=== PATIENT | male | born 1975 | race Caucasian/White ===

== ENCOUNTER 2022-11-16 14:47 | Outpatient (REF) | payer MEDICAID, SELFPAY ==
--- NOTE | 2022-11-16 14:55 | EMG_ITS ---
Chief complaint: Fall injury February 2022 resulting in lower back pain radiating to the legs. Numbness in his legs especially with walking. Patient is not diabetic. No history of past lumbar surgery. Recent back injection relieved numbness. Reason for referral: Evaluate for neuropathy versus radiculopathy Referred by: Sohan RUSH Procedure done: Bilateral lower extremity NCS/EMG Precautions and/or limitations: None The limb temperature was monitored continuously and remained between 32-36 degrees C during the performance of the NCS. Nerve Conduction Studies Anti Sensory Summary Table ?Stim Site NR Onset (ms) Norm Onset (ms) Peak (ms) Norm Peak (ms) O-P Amp (?V) Norm O-P Amp Site1 Site2 Delta-0 (ms) Dist (cm) Rio (m/s) Norm Rio (m/s) Left Sural Anti Sensory (Lat Mall) Calf ? 1.4 3.6 <4.0 7.4 >5.0 Calf Lat Mall 1.4 14.0 100 Right Sural Anti Sensory (Lat Mall) Calf ? 3.0 3.4 <4.0 5.8 >5.0 Calf Lat Mall 3.0 14.0 47 Motor Summary Table ?Stim Site NR Onset (ms) Norm Onset (ms) O-P Amp (mV) Norm O-P Amp iAmp (mV) Amp (1st) (%) Site1 Site2 Delta-0 (ms) Dist (cm) Rio (m/s) Norm Rio (m/s) Left Peroneal Motor (Ext Dig Brev) Ankle ? 3.5 <4.0 5.1 >2.5 6.9 100.0 Ankle Ext Dig Brev 3.5 0.0 B Fib ? 10.5 4.6 6.2 90.2 B Fib Ankle 7.0 31.0 44 >40 Poplt ? 11.2 5.0 6.7 98.0 Poplt B Fib 0.7 7.0 100 >40 Right Peroneal Motor (Ext Dig Brev) Ankle ? 3.6 <4.0 4.3 >2.5 5.6 100.0 Ankle Ext Dig Brev 3.6 0.0 B Fib ? 10.0 4.9 6.2 114.0 B Fib Ankle 6.4 32.0 50 >40 Poplt ? 11.1 4.8 6.2 111.6 Poplt B Fib 1.1 5.5 50 >40 Left Tibial Motor (Abd Arrieta Brev) Ankle ? 3.6 <5 5.0 >2.5 7.1 100.0 Ankle Abd Arrieta Brev 3.6 0.0 Knee ? 11.8 3.3 5.0 66.0 Knee Ankle 8.2 39.0 48 >40 Run #2 (Abd Arrieta Brev) Ankle ? 3.8 <5 5.2 >2.5 7.0 100.0 Ankle Abd Arrieta Brev 3.8 0.0 Knee ? 12.0 1.3 1.8 25.0 Knee Ankle 8.2 40.0 49 >40 H Reflex Studies ?NR H-Lat (ms) L-R H-Lat (ms) L-R Lat Norm Left Tibial (Gastroc) ? 12.80 0.86 <2.0 Right Tibial (Gastroc) ? 11.94 0.86 <2.0 EMG ?Side Muscle Nerve Root Ins Act Fibs Psw Amp Dur Poly Recrt Int Pat Comment Right AbdHallucis MedPlantar S1-2 Nml Nml Nml Nml Nml 0 Nml Complete Right AntTibialis Dp Br Peron L4-5 Nml Nml Nml Nml Nml 0 Nml Complete Right PostTibialis Tibial L5, S1 Nml Nml Nml Nml Nml 0 Nml Complete Right MedGastroc Tibial S1-2 Nml Nml Nml Nml Nml 0 Nml Complete Right VastusMed Femoral L2-4 Nml Nml Nml Nml Nml 0 Nml Complete Left AbdHallucis MedPlantar S1-2 Nml Nml Nml Nml Nml 0 Nml Complete Left AntTibialis Dp Br Peron L4-5 Nml Nml Nml Nml Nml 0 Nml Complete Left PostTibialis Tibial L5, S1 Nml Nml Nml Nml Nml 0 Nml Complete Left MedGastroc Tibial S1-2 Nml Nml Nml Nml Nml 0 Nml Complete Left VastusMed Femoral L2-4 Nml Nml Nml Nml Nml 0 Nml Complete Paraspinal EMG ?Side Muscle Nerve Root Ins Act Fibs Psw Comment Right Lumbar Upper Rami Nml Nml Nml Right Lumbar Mid Rami Nml Nml Nml Right Lumbar Lower Rami Nml Nml Nml Left Lumbar Upper Rami Nml Nml Nml Left Lumbar Mid Rami Nml Nml Nml Left Lumbar Lower Rami Nml Nml Nml FINDINGS: All motor and sensory nerves tested showed normal latencies, amplitudes and conduction velocities. H reflexes were normal and symmetric. Concentric needle EMG was performed in selected muscles of the bilateral lower extremity and lumbar paraspinals. Study did not reveal signs of electric abnormalities as shown in the table below. IMPRESSION: 1. This is a normal study. 2. There is no electrodiagnostic evidence for peroneal neuropathy, tibial neuropathy, lumbosacral plexopathy, lumbar radiculopathy, or peripheral neuropathy. CLINICAL COMMENT: Symptoms suggestive of lumbar radiculitis or stenosis although no active denervation seen on needle EMG today. Thank you for your kind referral. Apoorva Nicole MD, ANTHONY Board Certified, [place] Board [employer] and Rehabilitation (ABPMR) Board Certified, [place] Board of Electrodiagnostic Medicine (ABEM) CODIN 97114 x 2 MTDD
== END 2022-11-16 14:48 | disposition home or self-care (01) ==
LOC: HO.NEURO 14:47
PROVIDERS: PCP Internal Medicine; Visit Provider Physical Medicine & Rehabilitation
DX: G62.9 Polyneuropathy, unspecified (principal); M54.16 Radiculopathy, lumbar region; M47.896 Other spondylosis, lumbar region
CPT/HCPCS: 95886; 95910

== ENCOUNTER → 2022-11-16 14:55 | Outpatient (BNV) | payer MEDICAID, SELFPAY | PROVIDERS: PCP Internal Medicine; Visit Provider Physical Medicine & Rehabilitation | DX: M54.50 Low back pain, unspecified (principal); M79.604 Pain in right leg; M79.605 Pain in left leg | CPT/HCPCS: 95886; 95910 ==

== ENCOUNTER 2024-01-05 09:23 | Outpatient (REF) | payer OTHER, SELFPAY | END 2024-01-05 09:24 | disposition home or self-care (01) | LOC: HO.HOSX 09:23 | PROVIDERS: PCP Internal Medicine; Referring Provider Physician Assistant; Visit Provider Physician Assistant | DX: M43.16 Spondylolisthesis, lumbar region (principal) | CPT/HCPCS: 72110 ==

== ENCOUNTER 2024-01-05 09:23 | Outpatient (AMB) | payer OTHER, MEDICAID, SELFPAY ==
--- NOTE | 2024-01-05 09:28 | A.SPINEOV_ITS ---
Intake Visit Reasons: spinal stenosis/low back pain Intake Note: Mr. Mckeon is here today c/o Low back pain and numbness on feet. [place] Required: No Allergies Gabapentin Allergy (Mild, Uncoded 01/05/24 09:30) Itching Assessment & Plan Assessment & Plan (1) Spondylolisthesis, lumbar region: Code(s): M43.16 - Spondylolisthesis, lumbar region Category: Medical Plan Dear Sohan, Thank you for referring Mr Mckeon to our office today. He is a very nice 48-year-old gentleman who presents to the office today for evaluation of a chronic low back pain that he has had now for a number of years. He feels it particularly worse when he is standing and walking. At this point he can only walk for very short distance. It as he is walking his back will hurt, his feet will go numb in his but will feel numb. If he sits down it will go away. Sleeping at night as okay. If he bends forward it seems to help the pain and discomfort as well. He underwent 2 different cortisone injections with Dr. Trejo that only gave him very modest relief. Tried ibuprofen and Tylenol but that did not help much at all. He takes Percocet that gives him a little bit of relief but other than that nothing is working. He had an MRI done at the [facility] showing a spondylolisthesis L4-5 with significant facet arthropathy with central canal stenosis. PMH: Otherwise healthy gentleman, he had a episode of colitis earlier this year which resolved and he is on treatment with folic acid, vitamin B6 and pantoprazole. History of hand surgery, knee surgery and clavicle repair. Denies any problem with his heart, lungs, strokes, kidney, liver, bleeding disorders or cancer Social hx: He does not smoke, drink use any recreational drugs Medications: Pantoprazole, multivitamin, folic acid, vitamin B6 and Percocet Allergies: Gabapentin Physical exam: Awake alert oriented no acute distress, he walks with a flexed posture, strength and reflexes are normal Imaging review: Lumbar MRI done at the [facility] shows a grade 1 spondylolisthesis with significant facet arthropathy, the right-sided facet joint seems to be medially rotated, there maybe a small cyst on it. This altogether as causing moderate to severe central canal stenosis. Impression: 48-year-old gentleman presents to the office today for evaluation of chronic low back pain which is getting worse over time associated with numbness of his feet and numbness of his buttocks. If he sits down it will go away. It has gotten to the point now where he can walk for only very short distances before he has to sit down. It can be a struggle just to get through his day. He has tried conservative management in the form of anti- inflammatories, Tylenol, cortisone injections and activity modifications. He has a grade 1 spondylolisthesis on his MRI with moderate to severe central canal stenosis. He has significant facet arthropathy. I sent him for flexion- extension x-rays which shows signs of significant anterior translation in the standing position compared to his MRI done in the supine position where there is just a subtle spondylolisthesis. His clinical situation suggests instability also. Dr. Cochran met with the patient. We discussed the typical treatment for this which would be correction of the spondylolisthesis with fusion, specifically oblique lumbar interbody fusion. All pertinent risks and benefits were discussed. Success rates quoted at 70-90% for back pain. Although he has not yet participated in physical therapy, I do not see any reason to put him through this as there is no good literature that we are aware of that states that physical therapy will correct a spondylolisthesis that has dynamic instability on standing x-rays. I did warn him that sometimes insurance companies will still however put him through this before surgery. Pt was given risk and benefits of surgery including but not limited to infection, hematoma , nerve injury,durotomy, weakness,bowel/bladder injury, persistent pain, adjacent segment disease as well as the option to continue with conservative treatment and patient wishes to proceed with surgery. Pt is aware they should stop their motrin, aspirin 7 days prior to surgery. All questions were answered to the best of our ability. If there is anything about this patients medical history that we have overlooked or concerns you have about us proceeding with surgery we would appreciate any input you can offer. Thank you for allowing us to care for your patient. The total time spent with this visit with this patient was 45 minutes reviewing history, physical exam, lumbar imaging review, and implementation of treatment plan or further diagnostic testing Jorge Luis Cochran MD,PhD [facility] Orders: Orders XR lumbar spine 4V min Today M43.16 - Spondylolisthesis, lumbar region Coding Level of Care Code New Pt Level 4 (69307) Diagnoses Spondylolisthesis, lumbar region M43.16
== END 2024-01-05 10:04 | disposition home or self-care (01) ==
PROVIDERS: PCP Internal Medicine; Referring Provider Physician Assistant; Visit Provider Physician Assistant
DX: M43.16 Spondylolisthesis, lumbar region (principal)
CPT/HCPCS: 99204

== ENCOUNTER → 2024-01-23 14:08 | Outpatient (BNV) | payer OTHER, SELFPAY | PROVIDERS: Admitting Provider Neurological Surgery; PCP Internal Medicine; Visit Provider Internal Medicine | DX: R94.31 Abnormal electrocardiogram [ECG] [EKG] (principal) | CPT/HCPCS: 93010 ==

== ENCOUNTER 2024-02-19 07:19 | Observation (INO) | payer OTHER, SELFPAY ==
--- NOTE | 2024-01-23 | ECG_ITS ---
Test Reason : preop Blood Pressure : / mmHG Vent. Rate : 087 BPM Atrial Rate : 087 BPM P-R Int : 154 ms QRS Dur : 076 ms QT Int : 338 ms P-R-T Axes : 055 013 042 degrees QTc Int : 406 ms Normal sinus rhythm Possible Left atrial enlargement Nonspecific ST abnormality Abnormal ECG No previous ECGs available Referred By: Lor Sanchez Electronically Signed By:MIMI WINTER
[2024-01-23 13:10] VITALS: BP 142/102; PULSE 96; RESP 16; O2SAT 99; BMI 25.8
--- NOTE | 2024-01-23 13:48 | HO.ANESPROP2 ---
Documented by User: Lor Sanchez NP 02/15/24 10:32 HPI - Anesthesia Eval Consult details Narrative: 48yo M for L4-5 Oblique Lumbar Interbody Fusion, 02/19/24 No recent illness No CP/SOB with work as maintence at [employer] ETOH: 11/2023 drinking 1 pint daily, now down to couple nips every couple of days . Previous + withdrawal symptoms 2021. Discussed slow decrease preop Awareness under anesthesia during L hand surgery - ? TIVA/block, does not remember ETT GERD: controlled with ppi PMFSH Active Problems Active Problems: All Active Problems Spondylolisthesis, lumbar region (Acute) Past Medical History Medical History History of suicidal ideation Insomnia GERD (gastroesophageal reflux disease) History of alcohol abuse Hx of jaundice (~2021) Hx of infection Pancolitis Hx of esophagitis Depression Anxiety Awareness under anesthesia History of fracture of clavicle (~08/2022) Surgical History Surgical History History of esophagogastroduodenoscopy (EGD) (~10/2023) Hx of colonoscopy (~10/2023) Hx of hand surgery (~2005) Hx of arthroscopy of right knee (~2007) Social History Social History (Updated 01/23/24 @ 13:58 by Venus Godfrey RN) Household Members: None Housing: Apartment Are you a primary wound care coordinator to a significant other at home: No Do you presently have visiting nurse or other home services: No Comment: uses a walking stick at times Patient Tobacco Use Status: Former Tobacco user Tobacco use type: Cigarette Smoked in Last 30 Days: No Use of substances other than those prescribed or required for medical reasons: No Have you been hit, kicked, punched, or otherwise hurt by someone within the past year? If so, by whom?: No Spiritual Healthcare Practices: no Orthodox Healthcare Practices: no Cultural Healthcare Practices: no Are you DNR?: No Advance Directives: No Advance Directives Information Provided: Yes Advance Directives on File: No Recently lost weight without trying: Yes How much weight loss: 14-23 pounds Eating poorly because of decreased appetite: No Nutrition screen score: 4 Nutrition Risks: No Nutritional Risk Poor oral hygiene: No Meds Allergies Allergy/AdvReac Type Severity Reaction Status Date / Time Gabapentin Allergy Severe Itching Uncoded 01/23/24 13:33 all over Home Medications ?Medication ?Instructions ?Recorded ?Confirmed ?Last Taken ?Type folic acid 1 mg tablet 1 mg PO DAILY 01/22/24 01/22/24 Unknown History hydroxyzine pamoate 50 mg capsule 50 mg PO Q4H PRN anxiety 01/22/24 01/22/24 Unknown History multivitamin (One Daily 1 tab PO DAILY 01/22/24 01/22/24 Unknown History Multivitamin tablet) oxycodone-acetaminophen 5 mg-325 1 tab PO QID PRN Pain 01/22/24 01/22/24 Unknown History mg tablet pantoprazole 40 mg tablet,delayed 40 mg PO DAILY 01/22/24 02/19/24 Unknown History release pyridoxine (vitamin B6) 100 mg 100 mg PO DAILY 01/22/24 01/22/24 Unknown History tablet quetiapine 25 mg tablet 25 mg PO BID PRN Anxiety 01/22/24 01/23/24 Unknown History sucralfate 1 gram tablet 1 g PO BID 01/22/24 01/22/24 Unknown History quetiapine 100 mg tablet 100 mg PO BEDTIME 01/23/24 01/23/24 Unknown History Exam Height,Weight and Vital Signs: Height 5 ft 8 in Weight 77.111 kg Last Vital Signs Pulse 96 01/23/24 13:10 Resp 16 01/23/24 13:10 BP 142/102 H 01/23/24 13:10 Pulse Ox 99 01/23/24 13:10 O2 Del Method Room Air 01/23/24 13:10 Pertinent Lab Results Pertinent Lab Results: Lab Results 02/08/24 02/08/24 Range/Units 16:06 16:07 WBC 5.5 (4.8-10.8) X10*3/uL RBC 3.46 L (4.60-5.80) X10*6/uL Hgb 11.4 L (14.0-18.0) g/dl Hct 32.5 L (42.0-52.0) % MCV 93.9 (80.0-98.0) fL MCH 32.9 (27.0-33.0) pg MCHC 35.1 (31.0-36.0) g/dl RDW 13.0 (11.0-16.0) % Plt Count 279 (160-400) X10*3/uL MPV 8.8 L (9.4-12.4) fL Absolute Nucleated RBC 0.000 (0.0-0.012) X10*3/uL Nucleated RBC % (auto) 0.0 (0.0-0.2) /100WBC PT 10.7 L (10.9-12.4) SEC INR 0.9 (0.9-1.1) Sodium 142 (135-145) mmol/L Potassium 4.4 (3.3-5.1) mmol/L Chloride 108 (96-108) mmol/L Carbon Dioxide 26 (22-29) mmol/L Anion Gap 12 (12-20) BUN 16 (9-16) mg/dL Creatinine 0.83 (0.5-1.4) mg/dL Estim Creat Clear Calc 104.1 Estimated GFR > 60 Fasting Glucose 96 (60-99) mg/dL Calcium 9.6 (8.4-10.2) mg/dL Total Bilirubin 0.3 (0.0-1.0) mg/dL AST 26 (5-37) U/L ALT 22 (0-40) U/L Alkaline Phosphatase 43 (39-117) U/L Total Protein 7.5 (6.5-8.0) g/dL Albumin 4.6 (3.5-5.0) g/dL Blood Type A Positive Antibody Screen NEGATIVE Narrative Narrative: EKG 12/2023 Vent. Rate : 087 BPM Atrial Rate : 087 BPM P-R Int : 154 ms QRS Dur : 076 ms QT Int : 338 ms P-R-T Axes : 055 013 042 degrees QTc Int : 406 ms Normal sinus rhythm Possible Left atrial enlargement Nonspecific ST abnormality Abnormal ECG No previous ECGs available Airway TM Dist: >3cm Neck ROM: Full Loose/Missing/Broken Teeth: Yes (capped ~#9,) Heart: RRR Lungs: CTAB Assessment and Plan Assessment Anesthesia Assessment: Anesthesia Plan Discussed and PAT Visit Documented by User: Aileen Echavarria MD 02/19/24 07:57 PMFSH Past Medical History Medical History History of suicidal ideation Insomnia GERD (gastroesophageal reflux disease) History of alcohol abuse Hx of jaundice (~2021) Hx of infection Pancolitis Hx of esophagitis Depression Anxiety Awareness under anesthesia History of fracture of clavicle (~08/2022) Family History Family history of problems with anesthesia: No Surgical History Surgical History History of esophagogastroduodenoscopy (EGD) (~10/2023) Hx of colonoscopy (~10/2023) Hx of hand surgery (~2005) Hx of arthroscopy of right knee (~2007) History of Problems with Anesthesia: No Social History Social History (Updated 01/23/24 @ 13:58 by Venus Godfrey RN) Household Members: None Housing: Apartment Are you a primary wound care coordinator to a significant other at home: No Do you presently have visiting nurse or other home services: No Comment: uses a walking stick at times Patient Tobacco Use Status: Former Tobacco user Tobacco use type: Cigarette Smoked in Last 30 Days: No Use of substances other than those prescribed or required for medical reasons: No Have you been hit, kicked, punched, or otherwise hurt by someone within the past year? If so, by whom?: No Spiritual Healthcare Practices: no Orthodox Healthcare Practices: no Cultural Healthcare Practices: no Are you DNR?: No Advance Directives: No Advance Directives Information Provided: Yes Advance Directives on File: No Recently lost weight without trying: Yes How much weight loss: 14-23 pounds Eating poorly because of decreased appetite: No Nutrition screen score: 4 Nutrition Risks: No Nutritional Risk Poor oral hygiene: No Meds Allergies Allergy/AdvReac Type Severity Reaction Status Date / Time Gabapentin Allergy Severe Itching Uncoded 01/23/24 13:33 all over Home Medications ?Medication ?Instructions ?Recorded ?Confirmed ?Last Taken ?Type folic acid 1 mg tablet 1 mg PO DAILY 01/22/24 01/22/24 Unknown History hydroxyzine pamoate 50 mg capsule 50 mg PO Q4H PRN anxiety 01/22/24 01/22/24 Unknown History multivitamin (One Daily 1 tab PO DAILY 01/22/24 01/22/24 Unknown History Multivitamin tablet) oxycodone-acetaminophen 5 mg-325 1 tab PO QID PRN Pain 01/22/24 01/22/24 Unknown History mg tablet pantoprazole 40 mg tablet,delayed 40 mg PO DAILY 01/22/24 02/19/24 Unknown History release pyridoxine (vitamin B6) 100 mg 100 mg PO DAILY 01/22/24 01/22/24 Unknown History tablet quetiapine 25 mg tablet 25 mg PO BID PRN Anxiety 01/22/24 01/23/24 Unknown History sucralfate 1 gram tablet 1 g PO BID 01/22/24 01/22/24 Unknown History quetiapine 100 mg tablet 100 mg PO BEDTIME 01/23/24 01/23/24 Unknown History Exam Airway Mallampati Class: II (cap front) Assessment and Plan Final Anesthetic Review Family History of Problems with Anesthesia: No History of Problems with Anesthesia: No NPO: Yes ASA Class: II Final Preanesthetic Review: No Changes in Pt Med Stat, Meds/Allgs Chart Reviewed and Consent Obtained/Reviewed Patient Risk: Intermediate Procedure Risk: Intermediate Anesthetic Plan Anesthetic Plan: GA Disposition: Standard PACU
[2024-02-08 16:39] LABS: Hematocrit 32.5 % (42.0-52.0); Hemoglobin 11.4 g/dl (14.0-18.0); Mean Corpuscular HGB Conc 35.1 g/dl (31.0-36.0); Mean Corpuscular Hemoglobin 32.9 pg (27.0-33.0); Mean Corpuscular Volume 93.9 fL (80.0-98.0); Mean Platelet Volume 8.8 fL (9.4-12.4); Platelet Count 279 X10*3/uL (160-400); Red Blood Count 3.46 X10*6/uL (4.60-5.80); White Blood Count 5.5 X10*3/uL (4.8-10.8)
[2024-02-08 16:56] LABS: INTERNATIONAL NORM RATIO 0.9 (0.9-1.1); Prothrombin Time 10.7 SEC (10.9-12.4)
[2024-02-08 17:10] LABS: Alanine Aminotransferase 22 U/L (0-40); Albumin Level 4.6 g/dL (3.5-5.0); Alkaline Phosphatase 43 U/L (39-117); Anion Gap 12 (12-20); Aspartate Amino Transferase 26 U/L (5-37); Bilirubin Total 0.3 mg/dL (0.0-1.0); Blood Urea Nitrogen 16 mg/dL (9-16); Calcium 9.6 mg/dL (8.4-10.2); Carbon Dioxide 26 mmol/L (22-29); Chloride 108 mmol/L (96-108); Creatinine Clr Calc Pharmacy 104.1; Estimated Glomerular Filt Rate > 60; Glucose Fasting 96 mg/dL (60-99); Potassium 4.4 mmol/L (3.3-5.1); Sodium 142 mmol/L (135-145); Total Protein 7.5 g/dL (6.5-8.0)
[2024-02-19] VITALS (14 sets, daily range): BP systolic 136–173; BP diastolic 92–116; PULSE 75–100; RESP 14–18; TEMP 36.7–37.7; O2SAT 94–100; BMI 25.8; BMI 25.3
--- NOTE | ~2024-02-19 | FL_ITS ---
EXAMINATION: FL UP TO 1 HOUR CLINICAL INFORMATION: L4-5 OLIF COMPARISON: Number spine radiograph 01/05/2024 TECHNIQUE: Fluoroscopy and spot films provided during L4-5 OLIF. FINDINGS: 4 AP and lateral included spot films demonstrate placement of bipedicular L4-5 posterior spinal fusion with intervertebral disc spacer, with resolution of previously seen grade 1 anterolisthesis of L4 on L5. FLUOROSCOPY TIME: 1:43 MIN DOSE AREA PRODUCT: 16.187 Gycm2 36.718 mGy FL/FL guidance in OR IMPRESSION: Intraprocedural spot films and fluoroscopy were provided. Please refer to procedure note for full details. Electronically signed by: Jenna Douglass DO 02/19/2024 08:25 PM BOB
--- NOTE | 2024-02-19 07:49 | MHC.SHP ---
Pre-Procedural Eval Section A - 24 Hr Update-Section A only Date of Service: 02/19/24 The patient is an INPATIENT: Yes Section B - Complete if H&P > 30 days Chief Complaint: S/P 14-5 olif Allergies: Allergies Allergy/AdvReac Type Severity Reaction Status Date / Time Gabapentin Allergy Severe Itching Uncoded 01/23/24 13:33 all over Review of Systems Sugical H&P ROS: Negative: Constitution, Cardiovascular, Respiratory, Neurological, Psychiatric, Hem-Onc, Allergic/Immunologic, Gastrointestinal, Genitourinary, Musculoskeletal, Integumentary, Endocrine and Eyes/Ears/Nose/Throat Exam Surgical H&P Exam: Normal: HEENT, Normal: Heart, Normal: Lungs, Normal: Extremities, Normal: Abdomen, Normal: Skin and Normal: Neurological (Awake, alert) Plan I have reviewed the history and physical and performed a pertinent physical examination on my patient. No changes have occurred unless specified. L4-5 oblique lumbar interbody fusion Time Spent With Patient Time: Total time managing care of this patient today __5__ minutes.
[2024-02-19] MEDS: methocarbamoL 750 MG TABLET PO (07:50)
[2024-02-19] MEDS: Lactated Ringers 1,000 ML 100 ML IVCONT (07:50)
--- NOTE | 2024-02-19 10:48 | P.OP_ITS ---
Operative Note Operative Note Date of Service: 02/19/24 Narrative: Preop Diagnosis: 1.) Lumbar spondylolisthesis 2.) Neurogenic claudication Procedure: 1) L4-5 discectomy, arthrodesis and implantation cage through an anterolateral, retroperitoneal approach 2) L4-5 posterior instrumented fusion 3) allograft 4) injection of 10 cc of Exparel at the bilateral L4 transverse process for a muscular erector spinae block and additional Exparel in paravertebral tissue for postop management Consent Informed Consent was obtained for this operation. I have explained the nature, purpose and benefits of the operation. I have discussed the risks and benefit of the operation including possible complications or adverse events with patient/family. Alternative(s) were discussed with the patient with their relative benefits and risks as well as the consequences of not accepting the operation were included in obtaining consent. Surgeon: MIGUEL A MURPHY MD, PHD Procedure Assisted By: janet De Luna Description of Procedure This patient is suffering from back pain and neurogenic claudication due to an L4-5 spondylolisthesis and associated lumbar spinal stenosis. The patient was offered an oblique lumbar interbody fusion L4-5. The procedure complications were explained. The patient was consented. The patient was brought to the operating room and endotracheally intubated. The patient was turned in a lateral position with the left side up. Prep and drape was done followed by timeout. A small incision was made in the left lower abdominal quadrant. The muscle fascia was opened after which the 3 muscle layer was split to enter the retroperitoneal space. Dilators were docked in the anterior one third of the L4-5 disc space followed by a retractor. The retractor was opened. The L4-5 disc space was exposed. An annulotomy was done after which an elevator Baptiste was used to release the disc material from its endplates and to perforate the contralateral side. A partial discectomy was done. An 8, 10 and 12 height trial implant was inserted. The discectomy was completed. The endplates were prepared. An 12 x 50 mm with 6 degree lordosis 4 web cage filled with allograft was inserted into the disc space under fluoroscopic guidance. This resulted in reduction of the spondyl olisthesis. The retractor was removed. Hemostasis was done. The incision was closed in 2 layers. Steri-Strips used to approximate incision. An OpSite with Tegaderm was used to cover the incision. This marked first part of the procedure. The patient was turned prone on the Sam spine table. 2C arms were installed for fluoroscopy. Prep and drape was done followed by a second timeout.Iinjection of 10 cc of Exparel at the bilateral L4 transverse process for a muscular erector spinae block2 paramedian incisions were made lateral from the L4 and L5 pedicles. The muscle fascia was opened after which the muscle layer was split bluntly to expose the posterolateral gutter. The following steps were taken. A pediguard tap was used to create a transpedicular trajectory into the vertebral body. A K wire was placed. A specially designed instrument was advanced over the K wire to decorticate the posterolateral gutter in preparation for the posterolateral fusion. A pedicle screw was advanced over the K wire and the K wire was removed. The steps were done for the bilateral L4 and L5 pedicles. A total of 4 screws were placed with a diameter of 6.5 x 45 mm. Pedicle screws were connected with 45 mm michaela bilaterally and locked down with locking caps. The extension towers were removed. The posterolateral gutter was filled with allograft to complete the posterolateral L4-5 fusion Hemostasis was done and the incision was closed in 2 layers. Steri-Strips were used to approximate the incision. An OpSite were taken and was used to cover the incision. All sponge and needle counts were correct. Patient was extubated and transferred in stable is to recovery room. Anesthesia: General Estimated Blood Loss (ml): 30 mL Duration of Surgery: 90 minutes Complications: None Postoperative Plan: Admit to inpatient for observation
[2024-02-19] MEDS: fentaNYL citrate/PF 100 MCG/2 ML VIAL 50 MCG IVPUSH ×4 (11:25→11:40)
[2024-02-19] MEDS: oxyCODONE HCl Immed Release 5 MG TABLET PO ×2 (12:10→16:06)
--- NOTE | 2024-02-19 13:12 | PC.NURSE ---
Pt arrived to unit from PACU A&Ox4 and cooperative with care. Neuro assessment intact. Surgical dressing in place to lower back scant amount of shadow staining noted. Pt able to answer admission questions appropriately. Pt endorsing 7/10 lower back pain, last dose of oxy given at 12:10. All safety measures in place.
[2024-02-19] MEDS: 0.9 % Sodium Chloride 1,000 ML 75 ML IVCONT (13:20)
[2024-02-19] MEDS: HYDROmorphone HCl 1 MG/ML SYRINGE IVPUSH ×2 (13:35→23:35)
[2024-02-19] MEDS: Acetaminophen 1,000 MG/100 ML PIGGYBACK 400 MG IV ×2 (15:17→20:49)
[2024-02-19] MEDS: ceFAZolin Sodium/Dextrose,Iso 2 GM/50 ML PIGGYBACK IV ×2 (15:17→20:50)
--- NOTE | 2024-02-19 15:22 | PC.NURSE ---
MD Cochran made aware pt states he drinks daily, amounts very but sometimes up to 4-6 mixed drinks with vodka a day . Pt states he has experienced withdrawl from alcohol in the past and has had seizures r/t drinking. Mild tremors were noted upon assessment MD made aware. Pt states he is able to tell when he is withdrawaling from alcohol and doesn't believe he is at this time. Jorge Luis Corcoran ordered Librium TID PRN, pt is aware and is declining PRN med at this time.
[2024-02-19] MEDS: Ketorolac Tromethamine 15 MG/ML VIAL IVPUSH ×2 (17:19→23:30)
--- NOTE | 2024-02-19 17:56 | PHA.MEDREC ---
Pharmacy Consult ? Medication Reconciliation Pharmacy has reviewed the medication reconciliation completed by nursing. Called [facility] to confirm medications.
[2024-02-19] MEDS: Pyridoxine HCl (Vitamin B6) 50 MG TABLET 100 MG PO (18:41)
[2024-02-19] MEDS: Omeprazole 20 MG CAPSULE.DR PO (18:41)
[2024-02-19] MEDS: Docusate Sodium 100 MG CAPSULE PO (20:46)
[2024-02-19] MEDS: QUEtiapine Fumarate 100 MG TABLET PO (20:46)
[2024-02-19] MEDS: Sucralfate 1 GM TABLET PO (20:46)
[2024-02-19] MEDS: oxyCODONE HCl Immed Release 5 MG TABLET 10 MG PO (20:47)
[2024-02-19] MEDS: hydrOXYzine HCL 50 MG TABLET PO (23:34)
[2024-02-20] MEDS: oxyCODONE HCl Immed Release 5 MG TABLET 10 MG PO ×4 (01:02→12:19)
[2024-02-20] MEDS: methocarbamoL 750 MG TABLET PO (01:03)
[2024-02-20] MEDS: 0.9 % Sodium Chloride 1,000 ML 75 ML IVCONT (03:10)
[2024-02-20 03:17] VITALS: BP 109/65; PULSE 67; RESP 18; TEMP 36.6; O2SAT 97
[2024-02-20] MEDS: Acetaminophen 1,000 MG/100 ML PIGGYBACK 400 MG IV ×2 (03:28→08:36)
[2024-02-20] MEDS: ceFAZolin Sodium/Dextrose,Iso 2 GM/50 ML PIGGYBACK IV (03:44)
[2024-02-20] MEDS: HYDROmorphone HCl 1 MG/ML SYRINGE IVPUSH (04:00)
[2024-02-20] MEDS: Ketorolac Tromethamine 15 MG/ML VIAL IVPUSH ×2 (05:17→10:42)
[2024-02-20] MEDS: Omeprazole 20 MG CAPSULE.DR PO (05:17)
--- NOTE | 2024-02-20 07:32 | HO.NEUROPN_ITS ---
Neurosurgery Operative Note Date of Service: 02/20/24 Narrative: Postoperative day 1 L4-5 oblique lumbar interbody fusion Patient reports he was up in the hallways walking around last night. He is sore but when taking the medication seems to do okay. He is voiding okay and tolerating a diet. Afebrile, vital signs are stable Physical exam: Patient is awake alert oriented no acute distress, lying in a hospital bed, appears comfortable, strength is normal. Abdomen is soft nondiste nded nontender, left lower quadrant incision clean and dry, back dressing clean and dry. Impression: Postop day 1. L4-5 oblique lumbar interbody fusion, clinically doing well, has already been up walking the hallways last night. He is going to get up and work with PT this morning do some stairs but we anticipate discharge home as he has met all criteria. Patient has had no alcohol withdrawal symptoms and otherwise doing okay from that standpoint as well. Patient seen at bedside with Dr. Cochran.
--- NOTE | 2024-02-20 07:34 | PM.DS ---
DS: Providers Provider Date of Service: 02/19/24 Date of admission: 02/19/24 07:19 Date of discharge: 02/20/24 Primary care physician: Jose Briones MD Admitting clinician: Rizwan Cochran DS: Diagnosis Discharge Diagnosis (1) Spondylolisthesis, lumbar region: Status: Acute DS: Summary Time Attestation Discharge Coordination Time (in mins): 5 Quality: Safe Use of Opioids Does Pt have an Active Cancer Diagnosis on the Problem List?: No Quality: Stroke Does the patient have a stroke diagnosis?: No Physical Exam Vital Signs: Vital Signs: Last Vital Signs Temp 97.8 F 02/20/24 03:17 Pulse 67 02/20/24 03:17 Resp 18 02/20/24 03:17 BP 109/65 02/20/24 03:17 Pulse Ox 97 02/20/24 03:17 O2 Del Method Room Air 02/20/24 03:17 BMI result Body Mass Index 25.3 Discharge Plan Discharge Patient Disposition: Home, Self-Care Referrals: Jose Briones MD [Primary Care Provider] - 1 Week Discharge Medications: New docusate sodium [Colace] 100 mg capsule 100 mg PO BID Qty: 20 0RF oxycodone 5 mg tablet See Rx Instructions .ROUTE .COMPLEX PRN (Reason: pain) Qty: 40 0RF Rx Instructions: 1-2 tabs po q4 hours prn pain; Partial Fill upon patient request. methocarbamol 500 mg tablet 500 mg PO QID PRN (Reason: spasm) Qty: 30 0RF ibuprofen 800 mg tablet 800 mg PO TID PRN (Reason: pain) Qty: 30 0RF Continued multivitamin [One Daily Multivitamin] Tablet 1 tab PO DAILY quetiapine 25 mg tablet 25 mg PO BID PRN (Reason: Anxiety) sucralfate 1 gram tablet 1 g PO BIDAC hydroxyzine pamoate 50 mg capsule 50 mg PO Q4H PRN (Reason: anxiety) pantoprazole 40 mg tablet,delayed release (DR/EC) 40 mg PO DAILY@0630 folic acid 1 mg tablet 1 mg PO DAILY pyridoxine (vitamin B6) 100 mg tablet 100 mg PO DAILY quetiapine 100 mg tablet 100 mg PO BEDTIME Discontinued oxycodone-acetaminophen 5-325 mg tablet 1 tab PO QID PRN (Reason: Pain) Discharge Orders: Discharge Order (Routine); Ordered 02/20/24 Ordered By: Jorge Luis Corcoran Diet: Advance to usual diet Activity on Discharge: As tolerated Stand Alone Forms: Patient Portal Discharge page Print Language: Sinhala Activity Restrictions/Additional Instructions: After your spinal surgery we ask you to observe the following restrictions/guidelines: Activity: It is normal to feel some discomfort as you increase your activity, but that will improve with time. We ask you avoid heavy lifting or acitivities that cause pain. As a general rule, 8lbs is a safe limit for lifting right after surgery. Walk as much as you feel comfortable but not to exhaustion. You will feel extra tired the first few days after surgery. Stay well hydrated. It is OK to walk up and down stairs You may return to driving when you are off narcotics (such as vicodin, oxycodone, dilaudid, etc), and you are back to normal functional capacity. If you have any concerns please check with office before driving. Return to work is specific to each patient and each surgery, so please speak with your doctor/PA at first follow up. Please bring paperwork such as FMLA at that time if you need it filled out. Medications: For optimum pain control, it is best to start with a combination of 500 mg of Tylenol every 4 hours with 600 mg of Motrin every 8 hours, and use narcotics as needed in between for breakthrough pain. We will give you a short supply of narcotics after surgery (usually one weeks worth). If you need more please call the office but do not use more than prescribed. You will need to give our office 48 hours notice if you need narcotics refilled and we do not fill narcotics on weekends or evenings. If you are on a narcotic, it is a good idea to take a stool softener such as colace or senna to avoid constipation If you take blood thinner such as aspirin, Plavix, Coumadin, Effient, Eliquis etc for conditions such as Afib, DVT, Pulmonary embolus, coronary disease, stents etc please speak with your surgeon about specific details as to when you can resume these medications. You can resume NSAIDs on post op day 1 (eg: Motrin, Naproxen, etc). Follow up: Please call the office, , after surgery to arrange a 3 week follow up for wound check. Wound Care: You may remove your dressing on the first day after surgery. ?You may ?leave open to air. Please do not remove the steri strips underneath. they will fall off on their own in one week. IT IS NORMAL FOR THE WOUND TO OOZE OR BE BLOODY FOR A FEW DAYS AFTER SURGERY. ?IF THIS HAPPENS JUST PLACE NEW DRESSING OVER IT TO AVOID STAINING CLOTHES. You may shower on post op day # 1 We ask that you do not let the water soak the wound. If it does get wet, just towel dry lightly. Please do not scrub your incision or place any type of chemical/ointment on the wound. No tub baths, pools or jacuzzis for one month. If you have any leaking or redness from your wound, or fevers, please call office Care Plan Goals: Discharge home Health Concerns: None Plan of Treatment: Discharge home Assessment: Stable
[2024-02-20] MEDS: Sucralfate 1 GM TABLET PO (07:49)
[2024-02-20] MEDS: Folic Acid 1 MG TABLET PO (07:49)
[2024-02-20] MEDS: Pyridoxine HCl (Vitamin B6) 50 MG TABLET 100 MG PO (07:49)
[2024-02-20] MEDS: Docusate Sodium 100 MG CAPSULE PO (07:49)
[2024-02-20] MEDS: Multivitamin TABLET 1 TAB PO (07:49)
[2024-02-20 08:00] VITALS: BP 128/88; PULSE 92; RESP 20; TEMP 36.2; O2SAT 96
--- NOTE | 2024-02-20 08:14 | HO.POSTANES ---
Post Anesthesia Evaluation Post Anesthesia Evaluation Date of Service: 02/20/24 Vital Signs: Vital Signs Temp Pulse Resp BP Pulse Ox O2 Del Method 02/20/24 08:00 97.1 F 92 20 128/88 96 Room Air 02/20/24 03:17 97.8 F 67 18 109/65 97 Room Air Anesthesia: General Endotracheal-GETA Mental Status: Awake Pain Control: Satisfactory Nausea/Vomiting: None Hydration: Adequate Anesthesia-Related Issues: No Anes. Related Issues
--- NOTE | 2024-02-20 10:53 | MHC.CM.PN ---
[facility] DELIVERED PT LIVES ALONE AND IS FUNCTIONALLY INDEPENDENT. EMPLOYED F/T. DECLINES COMPLETING A HCP AT THIS TIME. PCP DR. DAY DP: PT HAS BEEN MEDICALLY CLEARED FOR DC HOME, NO SERVICES. PT HAS OWN RIDE HOME
--- NOTE | 2024-02-20 11:17 | PM.DS ---
DS: Providers Provider Date of Service: 02/20/24 Date of admission: 02/19/24 07:19 Primary care physician: Jose Briones MD DS: Diagnosis Discharge Diagnosis (1) Spondylolisthesis, lumbar region: Status: Acute DS: Summary Time Attestation Discharge Coordination Time (in mins): 4 Quality: Safe Use of Opioids Does Pt have an Active Cancer Diagnosis on the Problem List?: No Quality: Stroke Does the patient have a stroke diagnosis?: No Physical Exam Vital Signs: Vital Signs: Last Vital Signs Temp 97.1 F 02/20/24 08:00 Pulse 92 02/20/24 08:00 Resp 20 02/20/24 08:00 BP 128/88 02/20/24 08:00 Pulse Ox 96 02/20/24 08:00 O2 Del Method Room Air 02/20/24 08:00 BMI result Body Mass Index 25.3 Discharge Plan Discharge Patient Disposition: Home, Self-Care Referrals: Jose Birones MD [Primary Care Provider] - 1 Week Discharge Medications: New docusate sodium [Colace] 100 mg capsule 100 mg PO BID Qty: 20 0RF methocarbamol 500 mg tablet 500 mg PO QID PRN (Reason: spasm) Qty: 30 0RF ibuprofen 800 mg tablet 800 mg PO TID PRN (Reason: pain) Qty: 30 0RF oxycodone 5 mg tablet 5 mg PO Q4H PRN (Reason: pain) Qty: 40 0RF Rx Instructions: Partial Fill upon patient request. Continued multivitamin [One Daily Multivitamin] Tablet 1 tab PO DAILY quetiapine 25 mg tablet 25 mg PO BID PRN (Reason: Anxiety) sucralfate 1 gram tablet 1 g PO BIDAC hydroxyzine pamoate 50 mg capsule 50 mg PO Q4H PRN (Reason: anxiety) pantoprazole 40 mg tablet,delayed release (DR/EC) 40 mg PO DAILY@0630 folic acid 1 mg tablet 1 mg PO DAILY pyridoxine (vitamin B6) 100 mg tablet 100 mg PO DAILY quetiapine 100 mg tablet 100 mg PO BEDTIME Discontinued oxycodone-acetaminophen 5-325 mg tablet 1 tab PO QID PRN (Reason: Pain) Discharge Orders: Discharge Order (Routine); Ordered 02/20/24 Ordered By: Jorge Luis T Corcoran Diet: Advance to usual diet Activity on Discharge: As tolerated Stand Alone Forms: Patient Portal Discharge page Print Language: Setswana Activity Restrictions/Additional Instructions: After your spinal surgery we ask you to observe the following restrictions/guidelines: Activity: It is normal to feel some discomfort as you increase your activity, but that will improve with time. We ask you avoid heavy lifting or acitivities that cause pain. As a general rule, 8lbs is a safe limit for lifting right after surgery. Walk as much as you feel comfortable but not to exhaustion. You will feel extra tired the first few days after surgery. Stay well hydrated. It is OK to walk up and down stairs You may return to driving when you are off narcotics (such as vicodin, oxycodone, dilaudid, etc), and you are back to normal functional capacity. If you have any concerns please check with office before driving. Return to work is specific to each patient and each surgery, so please speak with your doctor/PA at first follow up. Please bring paperwork such as FMLA at that time if you need it filled out. Medications: For optimum pain control, it is best to start with a combination of 500 mg of Tylenol every 4 hours with 600 mg of Motrin every 8 hours, and use narcotics as needed in between for breakthrough pain. We will give you a short supply of narcotics after surgery (usually one weeks worth). If you need more please call the office but do not use more than prescribed. You will need to give our office 48 hours notice if you need narcotics refilled and we do not fill narcotics on weekends or evenings. If you are on a narcotic, it is a good idea to take a stool softener such as colace or senna to avoid constipation If you take blood thinner such as aspirin, Plavix, Coumadin, Effient, Eliquis etc for conditions such as Afib, DVT, Pulmonary embolus, coronary disease, stents etc please speak with your surgeon about specific details as to when you can resume these medications. You can resume NSAIDs on post op day 1 (eg: Motrin, Naproxen, etc). Follow up: Please call the office, , after surgery to arrange a 3 week follow up for wound check. Wound Care: You may remove your dressing on the first day after surgery. ?You may ?leave open to air. Please do not remove the steri strips underneath. they will fall off on their own in one week. IT IS NORMAL FOR THE WOUND TO OOZE OR BE BLOODY FOR A FEW DAYS AFTER SURGERY. ?IF THIS HAPPENS JUST PLACE NEW DRESSING OVER IT TO AVOID STAINING CLOTHES. You may shower on post op day # 1 We ask that you do not let the water soak the wound. If it does get wet, just towel dry lightly. Please do not scrub your incision or place any type of chemical/ointment on the wound. No tub baths, pools or jacuzzis for one month. If you have any leaking or redness from your wound, or fevers, please call office Care Plan Goals: Discharge home Health Concerns: None Plan of Treatment: Discharge home Assessment: Stable
== END 2024-02-20 12:31 | disposition home or self-care (01) ==
LOC: HO.SSSA 07:26 → HO.S3 12:20
PROVIDERS: Nurse Practitioner; Admitting Provider Physician Assistant; PCP Internal Medicine; Visit Provider Neurological Surgery
PROC: (CPT 22558; principal; 2024-02-19 10:50)
DX: M43.16 Spondylolisthesis, lumbar region (principal); M48.062 Spinal stenosis, lumbar region with neurogenic claudication
CPT/HCPCS: 22558; 22853; 22612; 22840; 20930; 36415; 80053; 85027; 85610; 86850; 86900; 86901; 93005; 96361; 96365; 96366; 96367; 96368; 96375; 96376; 97116; 97161; C1713; C9290; J0131; J0665; J0690; J1100; J1171; J1885; J2003; J2250; J2405; J2704; J3010; L8699

== ENCOUNTER → 2024-02-19 07:19 | Outpatient (BNV) | payer OTHER, SELFPAY | PROVIDERS: Admitting Provider Physician Assistant; PCP Internal Medicine; Visit Provider Neurological Surgery | DX: M43.16 Spondylolisthesis, lumbar region (principal) | CPT/HCPCS: 20930; 22558; 22612; 22840; 22853; 99024; 99499 ==

== ENCOUNTER 2024-03-11 09:58 | Outpatient (REF) | payer OTHER, SELFPAY | END 2024-03-11 09:59 | disposition home or self-care (01) | LOC: HO.HOSX 09:58 | PROVIDERS: PCP Internal Medicine; Visit Provider Physician Assistant | DX: Z13.89 Encounter for screening for other disorder (principal) ==

== ENCOUNTER 2024-03-11 09:58 | Outpatient (AMB) | payer OTHER, SELFPAY ==
--- NOTE | 2024-03-11 10:04 | HO.SPINEOV ---
Intake Visit Reasons: 1st post op Intake Note: Mr. Mckeon is here today for his 1st post op. Television Antenna Installer Required: No Allergies Gabapentin Allergy (Severe, Uncoded 03/11/24 10:05) Itching Coding
--- NOTE | 2024-03-11 10:04 | HO.SPINEOV ---
Intake Visit Reasons: 1st post op Allergies Gabapentin Allergy (Severe, Uncoded 03/11/24 10:05) Itching Assessment & Plan Assessment & Plan (1) Spondylolisthesis, lumbar region: Code(s): M43.16 - Spondylolisthesis, lumbar region Category: Medical Plan Procedure: L4-5 OLIF Triston comes in today for his 1st postoperative visit. To recap he was initially seen in the clinic for chronic low back pain worsening with ambulation. He has been doing better since surgery in his back pain has reduced quite a bit, but he still has quite a bit of pain with ambulation and sleep, and also reports pain in his left anterior thigh. He is concerned that sleeping on his left side aggravates his pain and feels as though it worsens it. He also feels like he has a spasm type pain in his low back and left anterior thigh. He did ask for a refill of his oxycodone pain medication during this visit. This is likely incisional site pain secondary to the OLIF procedure approach. We discussed the postoperative healing course and I answered all of his questions to the best of my ability. No new neurological deficits. Patient is able to ambulate well, rises from a seated position without difficulty. Incision sites are closed, well healing, with no signs of drainage. I will partially refilled his oxycodone for the last time. I will also send him some muscle relaxers for the spasm type pain he states he has. He was advised to be conservative with the PRN muscle relaxers if he is going to be taking the oxycodone. We will follow-up with the patient in 6 weeks for their 2nd postoperative visit. At that time we will get x-rays to review with the patient. Serafin Cochran MD,PhD [facility] Medications: New baclofen 5 mg PO TID PRN 30 tabs 0RF muscle spasm Changed From oxycodone Partial Fill upon patient request. 5 mg PO Q4H PRN 40 tabs 0RF pain To oxycodone Partial Fill upon patient request. 5 mg PO BID PRN 20 tabs 0RF pain Discontinued methocarbamol Discontinued Reason: Doctor's Order 500 mg PO QID PRN 30 tabs 0RF spasm Coding Level of Care Code Global (25879) Diagnoses Spondylolisthesis, lumbar region M43.16
== END 2024-03-11 10:14 | disposition home or self-care (01) ==
PROVIDERS: PCP Internal Medicine; Visit Provider Physician Assistant
DX: M43.16 Spondylolisthesis, lumbar region (principal)
CPT/HCPCS: 99024

== ENCOUNTER 2024-04-22 11:38 | Outpatient (REF) | payer OTHER, SELFPAY ==
--- NOTE | ~2024-04-22 | XR_ITS ---
EXAMINATION: X-ray lumbar spine. Clinical information: Spondylolisthesis, lumbar region. COMPARISON: January 05, 2024. TECHNIQUE: 4 views of the lumbar spine including flexion and extension. FINDINGS: Transpedicle screws placed bilaterally at L4 and L5 with posterior rods connecting. Status post intervertebral disc spacer placement at L4-5. There is a 3 mm anterolisthesis at L4-5 on neutral position which maintains during flexion and extension positioning. Mild multilevel thoracolumbar spondylosis without acute fracture. XR/XR lumbar spine 4V min IMPRESSION: Status post posterior lumbar fusion and intervertebral disc spacer placement at L4-5 without gross instability. Electronically signed by: Scott Tim MD 04/23/2024 01:42 PM EST
--- OUTSIDE RECORDS SUMMARY | 2024-04-22 13:27 | XMS_ITS | Data Portability ---
Author Organization [place] - Joaquin Cole [facility], [facility] Address [address] [place] [address] Assessment Encounter Date Assessment Date Assessment LastModified by Organization Details LastModified Time 06/20/2023 06/20/2023 FU R clavicle fx s/p ORIF 08/2022 He reports little pain now in the right shoulder He was able to return to work, under no restrictions He is satisfied with recovery to date Exam Right upper extremity the AC joint is prominent, no swelling or effusion, no tender, implants are palpable Xrays ordered obtained reviewed by me today at [facility] Right clavicle two views show the alignement especially through the distal fracture site maintained and fracture lines resolved, dual implants are in place A/P Right clavicle fracture with routine healing after ORIF, symptoms and function have recovered to a satisfactory point for him Continue with activity as tolerated, recheck as needed [email or web address] Not available 06/20/2023 12:55:10 Plan of Treatment Reminders Order Date Submit Date Provider Last Modified By Organization Details Last Modified Time Details Appointments None recorded. Lab None recorded. Referral None recorded. Procedures None recorded. Surgeries None recorded. Imaging XR, clavicle - rt clavicle 2v recheck room 315 2023 024 [email or web address] [id number] [facility], [address], [facility] [address], [place], [address], 4 15:42:34 Medication Orders None recorded. Patient TargetsNo targets recorded. Patient InstructionsNo instructions recorded. Reason for Referral None Reported. Results Created Date Observation Date Name Description Value Unit Range Abnormal Flag Note LastModifiedBy Organization Detail LastModifiedTime 06/20/19 24 06/20/2023 XR, clavi ara http:/ [email or web address] ?Encry pted=s hAaTro YD8dLq bEUv6g %2BXZw aYqtaq 0bqfl% 2Fg9IQ a4ajBk vP9nXo QUaueC m3YtLR FvZlgJ JJ8mAn HZtai3 [id number] AC0Ksb 3%2BCV 6LeUC8 mr84%3 D INTERFACE [facility] [address], [place], [address], 06/20/2023 09:43:46 06/20/19 24 06/20/2023 XR, clavi ara http:/ [email or web address] ?Encry pted=s hAaTro YD8dLq bEUv6g %2BXZw aYqtaq 0bqfl% 2Fg9IQ a4ajBk vP9nXo QUaueC m3YtLR FvZlgJ JJ8mAn HZtai3 8o6378 AC0Ksb 3%2BCV 6LeUC8 mr84%3 D INTERFACE [facility] [address], [place], [address], 06/20/2023 09:43:48 Result Notes None recorded. Procedures Surgical History None recorded. Imaging Results Imaging Date Name Status LastModified by Organiz ation Details LastModified Time 06/20/2023 XR, clavicle completed [facility] [address], [place], [address], 06/20/2023 09:43:46 06/20/2023 XR, clavicle completed [facility] [address], [place], [address], 06/20/2023 09:43:48 Procedure Notes None recorded. Medical Equipment None Reported. Allergies Allergen ID Allergen Name Allergen Category Reaction Reaction Severity Criticality Documentation Date Start Date Code Code System Note Provider Name and Address Organization Details Recorded Time 36851 gabapenti n medicatio n Not available Not available Not available 05/01/20232022 34682 RxNorm Not Available [facility] 12:08:44 Medications Name Sig Start Date Stop Date Status Note LastModified by Organization Details LastModified Time cyclobenzap rine 10 mg tablet TAKE 1 TABLET BY MOUTH 3 TIMES DAILY NEEDED FOR MUSCLE SPASMS FOR UP TO 30 DAYS. 06/19 completed Not Available Not Available Not Available atorvastati n 20 mg tablet TAKE 1 TABLET BY MOUTH EVERY DAY 06/19 completed Not Available Not Available Not Available thiamine HCl (vitamin B1) 100 mg tablet TAKE 1 TABLET BY MOUTH EVERY DAY active Not Available Not Available No t Available acetaminoph en 500 mg tablet 06/19 completed Not Available Not Available Not Available oxycodone-a cetaminophe n 5 mg-325 mg tablet TAKE 1 TABLET BY MOUTH 4 TIMES A DAY FOR 7 DAYS 06/19 completed Not Available Not Available Not Available hydroxyzine HCl 25 mg tablet TAKE 1 TABLET BY MOUTH EVERYDAY AT BEDTIME 06/19 completed Not Available Not Available Not Available pyridoxine (vitamin B6) 100 mg tablet TAKE 1 TABLET BY MOUTH EVERY DAY active Not Available Not Available No t Available naproxen 500 mg tablet TAKE 1 TABLET BY MOUTH 2 TIMES DAILY (WITH MEALS) FOR 60 DAYS. NEEDED FOR PAIN 06/19 completed Not Available Not Available Not Available oxycodone 5 mg tablet TAKE 1 TABLET BY MOUTH 4 TIMES A DAY NEEDED FOR PAIN. DO NOT DRIVE WHILE TAKING THIS MEDICATIO N 06/19 completed Not Available Not Available Not Available One Daily Multivitami n tablet TAKE 1 TABLET BY MOUTH EVERY DAY 06/19 completed Not Available Not Available Not Available folic acid active Not Available Not Av ailable Not Available calcium 600 mg (as carbonate)- vitamin D3 10 mcg (400 unit) tablet 06/19 completed Not Available Not Available Not Available oxycodone HCl-oxycodo ne-ASA take 1 tab PO four times a day prn painDO NOT DRIVE WHILE TAKING THIS MEDICATIO N 02/06 completed Statu s: 'Disc ontin ued'; Not Available Not Available Not Available Vitals Date Recorded Body height Body mass index (BMI) Body weight Provider Name and Address Organization Details Last Updated DateTime 06/20/2023 172.72 cm 28.9 kg/m2 86195.55 g SAMEERA SON [place] - [facility] 06/20/2023 09:38:30 Social History None recorded. Functional Status None recorded. Mental Status None recorded. Family History Nothing Reported. Medical History Condition Response Coronary Artery Disease N Anxiety/Depression N Emphysema N COPD N Pacemaker N Vascular Disease N Gastrointestinal Disease N Autoimmune disease N Orthotics N Arthritis N Blood Clot N Acid Reflux (GERD) N Cancer N Stroke N Rheumatoid Arthritis N Arrhythmia N Fibromyalgia N Allergies/Hayfever N Thyroid Problems N Kidney/Bladder Problems N Anemia N Heart Attack (DE) N Diabetes N Bleeding Disorder N Seizures/Epilepsy N AIDS/HIV N Congestive Heart Failure (CHF) N Asthma N Peripheral Vascular Disease N Sleep Apnea N Hepatitis N Heart Disease N Pulmonary Embolism N Hypertension N Osteoporosis N Past Encounters Encounter ID Performer Location Encounter Start Date Encounter Closed Date Diagnosis/Indication Diagnosis SNOMED-CT Code Diagnosis ICD10 Code Diagnosis Note [id number] [facility] [address] [place] [address] 06/20/2023 09:31:24 06/20/2023 13:13:36 Fracture of clavicle 93099790 S42.001D Health Concerns Section Related Observation LastModified by Organization Detai ls LastModified Time None Recorded Concern Status LastModified by Organization Details LastModified Time None Recorded Advance Directives Directive None Recorded Payers Encounter Date Sequence Insurance Name Policy Number Policy Ty Covered Member ID [id number] Member ID Guarantor Name 06/20/2023 1 [place] [facility] Triston Mckeon [id number] Triston Mckeon
== END 2024-04-22 11:39 | disposition home or self-care (01) ==
LOC: HO.HOSX 11:38
PROVIDERS: PCP Internal Medicine; Visit Provider Physician Assistant
DX: M43.16 Spondylolisthesis, lumbar region (principal)
CPT/HCPCS: 72110

== ENCOUNTER 2024-04-22 11:38 | Outpatient (AMB) | payer OTHER, SELFPAY ==
--- NOTE | 2024-04-22 11:09 | HO.SPINEOV ---
Intake Visit Reasons: 2nd post op with xrays Intake Note: Mr. Mckeon is here today for his 2nd post op with x-rays. Television Picture Tube Rebuilder Required: No Allergies Gabapentin Allergy (Severe, Uncoded 03/11/24 10:05) Itching Assessment & Plan Assessment & Plan (1) Spondylolisthesis, lumbar region: Code(s): M43.16 - Spondylolisthesis, lumbar region Category: Medical Plan Procedure: oblique lumbar interbody fusion L4-5 Triston comes in today for his 2nd postoperative visit after having a L4-[address] Cochran. To recap he was still having some pain with sleep and ambulation during his last visit. Today, he reports that the bulk of his pain has resolved. He still occasionally struggles with some left-sided low back pain, but overall this is tolerable. He has essentially been back to regular activity, with no significant concerns or issues. We discussed the postoperative healing course and I reviewed his x-ray imaging. No new neurological deficits, the patient ambulates well and rises from a seated position without difficulty. I would like adjacent to follow up in 1 year out for a subsequent postoperative visit. I will order a CT scan for 10 months out to evaluate for bone growth around fusion site. Serafin Cochran MD,PhD [facility] Orders: Orders CT lumbar spine wo IV con Today M43.16 - Spondylolisthesis, lumbar region Coding Level of Care Code Global (76247) Diagnoses Spondylolisthesis, lumbar region M43.16
--- OUTSIDE RECORDS SUMMARY | 2024-04-22 13:27 | XMS_ITS | Clinical Summary ---
Author Organization [facility] Address [address] [place] [address] Care Team Providers Care Merchandise Supervisor Name Role Phone Jose Briones MD Primary Care Provider Allergies Active Allergy Reactions Criticality Noted Date Comments Gabapentin 11/27/2023 Medications multivitamin (MULTIPLE VITAMINS ORAL) Take by mouth 1 (one) time each day. Active folic acid (FOLVITE) 1 mg tablet Take 1 Tablet by mouth daily. - Oral Active pyridoxine (B-6) 100 mg tablet Take 1 tablet (100 mg total) by mouth 1 (one) time each day. Active pantoprazole (PROTONIX) 40 mg EC tablet Take 1 tablet (40 mg total) by mouth 1 (one) time each day. 90 tablet 1 01/01/2024 Active sucralfate (CARAFATE) 1 gram tablet Take 1 tablet (1 g total) by mouth 2 (two) times a day. Take 1 hour before meals and at bedtime 60 each 11 01/02/2024 Active QUEtiapine (SEROquel) 100 mg tablet Take 1 tablet (100 mg total) by mouth at bedtime. 90 each 1 01/17/2024 Active hydrOXYzine pamoate (VISTARIL) 50 mg capsule Take 1 capsule (50 mg total) by mouth 4 (four) times a day if needed for anxiety. 120 capsule 1 01/17/2024 Active QUEtiapine (SEROquel) 25 mg tablet Take 1 tablet (25 mg total) by mouth 1 (one) time each day if needed (racing thoughts, Agitation). 180 each 1 01/17/2024 Active oxyCODONE (ROXICODONE) 5 mg immediate release tablet Take 1 tablet (5 mg total) by mouth every 4 (four) hours. for pain Max Daily Amount: 30 mg 02/20/2024 Active Active Problems Problem Noted Date Diagnosed Date Status post lumbar discectomy 02/26/2024 Overview (02/26/2024): For neurological medication. Patient underwent L4-L5 discectomy and L4-L5 posterior fusion with Dr. Cochran on 02/19/2024 Moderate episode of recurrent major depressive d isorder 01/17/2024 Hyperlipidemia 11/27/2023 History of alcohol dependence 11/27/2023 Iron deficiency anemia, unspecified 11/27/2023 Closed displaced fracture of lateral end of righ t clavicle 11/27/2023 Gastroesophageal reflux dise ase with esophagitis without hemorrhage 11/27/2023 Resolved Problems Problem Noted Date Diagnosed Date Resolved Date Alcohol dependence 11/27/2023 Encounters Date Type Department Care Team Description 02/26/2024 10:30 AM EST Office Visit Adult Medicine [address] [phone] Jose Briones MD Hospital discharge follow-up (Primary Dx); Hyperlipidemia, unspecified hyperlipidemia type; History of alcohol dependence (CMS/[facility]); Spondylolisthesis of lumbar region; Status post lumbar discectomy 02/20/2024 Telephone Adult Medicine [address] [phone] Jose Briones MD Hospital Follow-up from Last 3 Months Immunizations Name Administration Dates Next Due Tdap Tetanus diptheria acell ular pertussis (Boostrix; Adacel) 7yo and older 06/22/2011 Surgical History Surgery Date Site/Laterality Comments HAND SURGERY 2005 Left PROCEDURE: [place] UNLISTED PROCEDURE HANDS/FINGERS; COMMENT: torn ulnar ligament OTHER SURGICAL HISTORY 2007 Right PROCEDURE: [place] UNLISTED PROCEDURE FEMUR/KNEE; COMMENT: meniscus Medical History Medical History Date Comments Tear of medial meniscus of knee joint DX:Tear of medial meniscus of knee joint Tear of lateral cartilage or meniscus of knee, current DX:Tear of lateral cartilage or meniscus of knee, current Alcohol use DX:Alcohol use Esophagitis DX:Esophagitis Colitis DX:Colitis Anemia DX:Anemia Alcohol dependence (CMS/HCC) 11/27/2023 Family History Relation Name Status Comments Father Alive Mother Alive Social History Tobacco Use Types Packs/Day Years Used Date Smoking Tobacco: Former Smokeless Tobacco: Never Tobacco Cessation:Counseling Given: Not Answered Alcohol Use Standard Drinks/Week Comments Yes 20 (1 standard drink = 0.6 oz pu re alcohol) Sex and Gender Information Value Date Recorded Sex Assigned at Not on file Legal Sex Male 11:22 AM EST Gender Identity Not on file Sexual Orientation Not on file Obstetrics History Last Filed Vital Signs Vital Sign Reading Time Taken Comments Blood Pressure 125/82 02/26/2024 10:23 AM EST Pulse 104 02/26/2024 10:23 AM EST Temperature 35.9 ??C (96.7 ??F) 02/26/2024 10:[address] Respiratory Rate 16 02/26/2024 10:23 AM EST Oxygen Saturation 99% 02/26/2024 10:23 AM EST Inhaled Oxygen Concentration - - Weight 78.6 kg (173 lb 3.2 oz) 02/26/2024 10:23 AM EST Height 172.7 cm (5' 8 ) 02/26/2024 10:23 AM EST Body Mass Index 26.33 02/26/2024 10:23 AM EST Plan of Treatment Upcoming Encounters Date Type Department Care Team (Late st Contact Info) Description 08/27/2024 9:30 AM EDT Office Visit Adult Medicine [facility] [address] [place] [phone] Jose Briones MD [address] [place] [address] Health Maintenance Due Date Last Done Comments Hepatitis B Vaccines (1 of 3 - 19+ 3-dose series) 1993 Pneumococcal Vaccine: 50+ Years (1 of 2 - PCV) 1993 Pneumococcal Vaccine: Pediatrics (0 to 5 Years) and At-Risk Patients (6 to 64 Years) (1 of 2 - PCV) 1993 DTaP,Tdap,and Td Vaccines (2 - Td or Tdap) 06/21/2021 06/22/2011 HIV Screening 01/25/2022 Hepatitis C Screening 01/25/2022 Social Influencers of Health Screening 01/25/2022 COVID-19 Vaccine (3 - 2023-2 5 season) 2023 11/11/2020, 10/21/2020 Influenza Vaccine (#1) 2023 Zoster Vaccines (1 of 2) 02/15/2024 Depression Screening 01/16/2025 01/17/2024 Cholesterol Screening (Lipid Panel) 09/10/2028 09/11/2023, 09/11/2023 Colorectal Cancer Screening: Colonoscopy 11/23/2028 11/24/2023 HIB Vaccines Aged Out No longer eligi ble based on patient's age to complete this topic HPV Vaccines Aged Out No longer eligi ble based on patient's age to complete this topic Hepatitis A Vaccines Aged Out No long er eligible based on patient's age to complete this topic IPV Vaccines Aged Out No longer eligi ble based on patient's age to complete this topic MMR Vaccines Aged Out No longer eligi ble based on patient's age to complete this topic Meningococcal ACWY Vaccine Aged Out N o longer eligible based on patient's age to complete this topic Meningococcal B Vacine Aged Out No lo nger eligible based on patient's age to complete this topic RSV Immunization Patients Under 20 months Aged Out No longer eligible b ased on patient's age to complete this topic Varicella Vaccines Aged Out No longer eligible based on patient's age to complete this topic Procedures Procedure Name Priority Date/Time Associated Diagnosis Comments EXTERNAL CT REPORT 03/09/[address] REPORT 03/09/2024 EXTERNAL XRAY REPORT 03/08/2024 EXTERNAL XRAY REPORT 03/08/2024 EXTERNAL XRAY REPORT 02/19/2024 LIPID PANEL Routine 09/11/2023 from Last 3 Months or Most Recently Relevant to Health Maintenance Results * External CT Report (03/09/2024) Only the most recent of2 resultswithin the time period is included. Anatomical Region Laterality Modality Computed Tomogra phy [facility] Final Result * External Xray Report (03/08/2024) Only the most recent of3 resultswithin the time period is included. Anatomical Region Laterality Modality Radiographic Kellee ging us Provider [facility] XR PROCEDURES Final Result * (ABNORMAL) Lipid panel (09/11/2023) LDL/HDL Ratio 3 <=5 Triglycerides 390(A) 0 - 150 mg/dL Cholesterol 209(A) 0 - 200 mg/dL HDL 69 >=40 mg/dL LDL Cholesterol 62 0 - 100 mg/dL Blood Venous blood specimen / Unknown [facility] Provider LAB BLOOD ORDERABLES Aide l Result from Last 3 Months or Most Recently Relevant to Health Maintenance Insurance [facility] Care Teams Merchandise Supervisor Relationship Specialty Start Date End Date Jose Briones MD [address] [place] [phone] PCP - General 01/25/22
== END 2024-04-22 13:02 | disposition home or self-care (01) ==
PROVIDERS: PCP Internal Medicine; Visit Provider Physician Assistant
DX: M43.16 Spondylolisthesis, lumbar region (principal)
CPT/HCPCS: 99024

== ENCOUNTER → 2024-04-22 11:41 | Outpatient (BNV) | payer OTHER, SELFPAY | PROVIDERS: PCP Internal Medicine; Visit Provider Radiology Diagnostic Radiology | DX: M43.16 Spondylolisthesis, lumbar region (principal) | CPT/HCPCS: 72110 ==

== ENCOUNTER 2025-02-21 15:50 | Outpatient (REF) | payer OTHER, SELFPAY ==
--- OUTSIDE RECORDS SUMMARY | 2025-02-21 15:52 | XMS_ITS | Clinical Summary ---
Author Organization [facility] Address [address] [place] [address] Care Team Providers Care Outpatient Coder Name Role Phone Jose Briones MD Primary Care Provider Allergies Active Allergy Reactions Criticality Noted Date Comments Gabapentin 11/27/2023 Medications QUEtiapine (SEROquel) 25 mg tablet Take 1 tablet (25 mg total) by mouth 1 (one) time each day if needed (racing thoughts, agitation). 30 each 2 11/27/19 25 Active QUEtiapine (SEROquel) 100 mg tablet Take 1 tablet (100 mg total) by mouth at bedtime. 90 tablet 1 11/27/19 25 Active hydrOXYzine pamoate (VISTARIL) 50 mg capsule Take 1 capsule (50 mg total) by mouth 4 (four) times a day if needed for anxiety. 120 capsule 2 11/27/19 25 Active thiamine 100 mg tablet Take 1 tablet (100 mg total) by mouth 1 (one) time each day. 90 each 3 12/31/19 25 Active pyridoxine (B-6) 50 mg tablet Take 1 tablet (50 mg total) by mouth 1 (one) time each day. 90 each 3 12/31/19 25 Active folic acid (FOLVITE) 1 mg tablet Take 1 tablet (1 mg total) by mouth 1 (one) time each day. 90 each 3 12/31/19 25 Active FLUoxetine (PROzac) 20 mg capsule Take 1 capsule (20 mg total) by mouth 1 (one) time each day. 90 each 1 01/30/20 25 Active diazePAM (VALIUM) 5 mg tablet Take 1 tablet (5 mg total) by mouth 1 (one) time each day if needed for anxiety, sleep or muscle spasms. Max Daily Amount: 5 mg 30 tablet 01/30/20 25 Active baclofen (LIORESAL) 10 mg tablet Take 1 tablet (10 mg total) by mouth 3 (three) times a day. 270 each 01/30/20 25 Active azelaic acid (FINACEA) 15 % gel Apply 1 Application topically 2 (two) times a day. Apply to the affected area on the face 50 g 3 02/01/20 25 Active multivitamin (Multiple Vitamins) tablet Take 1 tablet by mouth 1 (one) time each day. 90 tablet 1 07/31/19 25 025 Discontinued metroNIDAZOLE (METROGEL) 0.75 % gel Apply and rub a thin film twice daily, morning and evening, to entire affected areas after washing. 45 g 2 11/27/19 25 025 Discontinued sertraline (ZOLOFT) 50 mg tablet Take 1 tablet (50 mg total) by mouth 1 (one) time each day. 30 each 5 12/18/19 25 025 Discontinued diazePAM (VALIUM) 5 mg tablet Take 1 tablet (5 mg total) by mouth every 12 (twelve) hours if needed for anxiety, sleep or muscle spasms. Max Daily Amount: 10 mg 60 tablet 12/31/19 25 025 Discontinued(Re order) minocycline (Zilxi) 1.5 % foam Apply 1 Application topically 1 (one) time each day. Express a small (boo-sized) amount to fingertips and apply a thin layer to all areas of the face once daily 30 g 01/30/20 25 025 Discontinued Active Problems Problem Noted Date Diagnosed Date Diarrhea 12/30/2024 Enteritis 12/30/2024 Hyperbilirubinemia 12/30/2024 Metabolic acidosis, increased anion gap 12/31/19 Ulcerative pancolitis 12/30/2024 Status post lumbar discectomy 02/26/2024 Overview (02/26/2024): [...] Encounters Date Type Department Care Team Description 01/29/2025 2:00 PM EST Office Visit Adult Medicine [address] [phone] Jose Briones MD Moderate episode of recurrent major depressive disorder (CMS/HCC V24, CMS/HCC V28) (Primary Dx); History of alcohol dependence (CMS/HCC V24, CMS/HCC V28); Hypokalemia; Erectile dysfunction, unspecified erectile dysfunction type; Lumbar radiculopathy; Facial rash 01/22/2025 Results Follow-Up Pending Sale To [facility] [address] [phone] Jose Briones MD 01/17/2025 1:15 PM EST - 01/17/2025 11:59 PM EST Hospital Encounter Radiology Department [address] [phone] History of alcohol dependence (CMS/HCC V24, CMS/HCC V28); Dizziness Discharge Disposition: Home or Self Care 12/31/2024 Telephone Adult [address] [phone] Jose Briones MD 12/30/2024 2:45 PM EST Office Visit [address] [phone] Jose Briones MD Moderate episode of recurrent major depressive disorder (CMS/HCC V24, CMS/HCC V28) (Primary Dx); History of alcohol dependence (CMS/HCC V24, CMS/HCC V28); Hypokalemia; History of seizure due to alcohol withdrawal; Dizziness 12/17/2024 9:00 AM EDT Office Visit Adult [address] [phone] Phyllis Ferguson PA Alcohol withdrawal syndrome without complication ([facility] V24, [facility] V28) (Primary Dx); Elevated glucose; Anemia, unspecified type; Hypokalemia; Primary insomnia; Depressive disorder; History of suicidal ideation 12/17/2024 Results Follow-Up Adult Medicine [address] [phone] Jose Briones MD 12/17/2024 Results Follow-Up [address] [phone] Phyllis Ferguson PA 12/12/[address] [phone] Jose Briones MD 11/26/2024 12:30 PM EDT Office Visit [address] [phone] Phyllis Ferguson PA Primary insomnia (Primary Dx); History of suicidal ideation; History of alcohol dependence ([facility] V24, [facility] V28); Elevated blood pressure reading; Facial rash from Last 3 Months Immunizations Immunization Administration Dates Next Due Tdap Tetanus diptheria acell ular pertussis (Boostrix; Adacel) 7yo and older 06/22/2011 Surgical History Surgery Date Site/Laterality Comments HAND SURGERY 2006 Left PROCEDURE: [place] UNLISTED PROCEDURE HANDS/FINGERS; COMMENT: torn ulnar ligament OTHER SURGICAL HISTORY 2007 Right PROCEDURE: [place] UNLISTED PROCEDURE FEMUR/KNEE; COMMENT: meniscus Medical History Medical History Date Comments Tear of medial meniscus of knee joint DX:Tear of medial meniscus of knee joint Tear of lateral cartilage or meniscus of knee, current DX:Tear of lateral cartilage or meniscus of knee, current Alcohol use DX:Alcohol use Esophagitis DX:Esophagitis Colitis DX:Colitis Anemia DX:Anemia Alcohol dependence ([facility] V24, [facility] V28) 11/27/2023 Family History Relation Name Status Comments Father Alive Mother Alive Social History Tobacco Use Types Packs/Day Years Used Date Smoking Tobacco: Former Smokeless Tobacco: Never Tobacco Cessation:Counseling Given: Not Answered Alcohol Use Standard Drinks/Week Comments Yes 20 (1 standard drink = 0.6 oz pu re alcohol) Housing Instability Answer Date Recorde d Are you worried that in the next 2 months you may not have stable housing? No 11/26/2024 Food Access & Nutrition Answer Date Rec orded Do you have access to a vari ety of food including fruits and vegetables? Yes 11/26/2024 Health Literacy Answer Date Recorded How often do you need to hav e someone help you when you read instructions, pamphlets, or other written material from your doctor or pharmacy? Never 11/26/2024 Caregiver: How often do you need to have someone help you when you read instructions, pamphlets, or other written material from your doctor or pharmacy? Not on file 11/26/2024 Financial Risk Answer Date Recorded How hard is it for you to pa y for the very basics like food, housing, medical care, and air conditioning / heating? Not very hard 11/26/2024 Transportation Answer Date Recorded Has the lack of transportati on kept you from meetings, work, or from getting things needed for daily living? No Has the lack of transportati on kept you from medical appointments or from getting medications? No 11/26/2024 Social Isolation Answer Date Recorded How often do you feel lonely or isolated from th ose around you? Never 11/26/2024 Food Risk Answer Date Recorded Within the past 12 months we worried whether our food would run out before we got money to buy more. Never true 11/26/2024 Within the past 12 months th e food we bought just didn't last and we didn't have money to get more. Never true 11/26/2024 Dependent Care Answer Date Recorded Do you need help finding or paying for care for your loved ones. For example, child care assistant or elderly care for an older adult? No 11/26/2024 Education Answer Date Recorded Do you think completing more education or training, like finishing a GED, going to college, or learning a trade, would be helpful for you? No 11/26/2024 Employment and Income Answer Date Recor ded During the last four weeks, have you been actively looking for work? No 11/26/2024 Living Situation Answer Date Recorded What is your living situation? Unrecognized valu e 11/26/2024 Sex and Gender Information Value Date Recorded Sex Assigned at Not on file Legal Sex Male 11:22 AM EST Gender Identity Not on file Sexual Orientation Not on file Last Filed Vital Signs Vital Sign Reading Time Taken Comments Blood Pressure 112/71 01/29/2025 2:06 PM EST Pulse 49 01/29/2025 2:06 PM EST Temperature 36.2 C (97.2 F) 01/29/2025 2:06 PM EST Respiratory Rate 16 01/29/2025 2:06 PM EST Oxygen Saturation 99% 01/29/2025 2:06 PM EST Inhaled Oxygen Concentration - - Weight 79.7 kg (175 lb 9.6 oz) 01/29/2025 2:06 P M EST Height 172.7 cm (5' 8 ) 01/29/2025 2:06 PM EST Body Mass Index 26.7 01/29/2025 2:06 PM EST Plan of Treatment Upcoming Encounters Date Type Department Care Team (Late st Contact Info) Description 04/01/2025 3:30 PM EST Office Visit Adult Medicine [facility] [address] [place], [place] [phone] Jose Briones MD [address] [place], [place] Health Maintenance Due Date Last Done Comments Drug Screen 1974 Non-Opioid Controlled Substance Agreement 1974 Hepatitis A Vaccines (1 of 2 - Risk 2-dose series) 1993 Hepatitis B Vaccines (1 of 3 - 19+ 3-dose series) 1993 Pneumococcal Vaccine: 50+ Years (1 of 2 - PCV) 1993 DTaP,Tdap,and Td Vaccines (2 - Td or Tdap) 06/21/2021 06/22/2011 Zoster Vaccines (1 of 2) 02/15/2024 COVID-19 Vaccine (3 - 2024-2 6 season) 2024 11/11/2020, 10/21/2020 Influenza Vaccine (#1) 2025 Postp oned from 10/28/2024 (Patient Refused) Social Influencers of Health Screening 11/26/2025 11/26/2024 Cholesterol Screening (Lipid Panel) 09/10/2028 09/11/2023, 09/11/2023 Colorectal Cancer Screening: Colonoscopy 11/23/2028 11/24/2023 RSV Immunization Adult Patients (1 - 1-dose 75+ series) 2049 HIV Screening Completed 12/17/2024 Hepatitis C Screening Completed 12/17/2024 Depression Screening Completed 01/29/2025 HIB Vaccines Aged Out No longer eligi [...] age to complete this topic Meningococcal B Vaccine Aged Out No l onger eligible based on patient's age to complete this topic RSV Immunization Patients Under 20 months Aged Out No longer eligible b ased on patient's age to complete this topic Varicella Vaccines Aged Out No longer eligible based on patient's age to complete this topic Procedures Procedure Name Priority Date/Time Associated Diagnosis Comments MR BRAIN WO CONTRAST Routine 01/17/2025 2:04 PM EST History of alcohol dependence (CMS/HCC V24, CMS/HCC V28) Dizziness ETHANOL Routine 12/17/2024 10:35 AM EDT History of alcohol dependence (CMS/HCC V24, CMS/HCC V28) CBC WITH AUTO DIFFERENTIAL Routine 12/17/2024 10:35 AM EDT Anemia, unspecified type HIV 1, 2 ANTIBODY, P24 ANTIGEN WITH REFLEX TO DIFFERENTIATION Routine 12/17/2024 10:35 AM EDT Encounter for screening for HIV HEPATITIS PANEL, ACUTE WITH REFLEX TO CONFIRMATION Routine 12/17/2024 10:35 AM EDT Alcohol induced fatty liver CBC AND DIFFERENTIAL Routine 12/17/2024 10:35 AM EDT Anemia, unspecified type COMPREHENSIVE METABOLIC PANEL Routine 12/17/2024 10:35 AM EDT Alcohol withdrawal syndrome without complication (CMS/HCC V24, CMS/HCC V28) HEMOGLOBIN A1C Routine 12/17/2024 10:35 AM EDT Hypokalemia LIPID PANEL Routine 09/11/2023 from Last 3 Months or Most Recently Relevant to Health Maintenance Results * MR Brain wo Contrast (01/17/2025 2:04 PM EST) Anatomical Region Laterality Modality Head and Neck Magnetic Resonan ce 01/21/2025 8:44 PM EST Impressions 01/21/2025 9:00 PM EST Impression: 1. No acute intracranial process -------- FINAL REPORT -------- Dictated By: Earnest Stearns Dictated Date: 01/21/2025 20:44 ET Assigned Physician: Earnest Stearns Reviewed and Electronically Signed By: Earnest Stearns Signed Date: 01/21/2025 21:00 ET Workstation ID: [id number] Transcribed By: Self Edit Transcribed Date: 01/21/2025 20:44 ET Narrative 01/21/2025 9:00 PM EST MRI BRAIN WITHOUT CONTRAST Clinical Statement: dizziness, patient with history of alocohol withdrawl Comparison: None Technique: Multiplanar, multisequence MR images of the brain were obtained without contrast. Findings: There is no evidence of diffusion restriction. Brain parenchyma is within normal limits. Intracranial flow voids are within normal limits. The ventricular system is normal in size and morphology. The basilar cisterns are within normal limits. The craniocervical junction is grossly within normal limits. The orbits and globes are within normal limits. Trace mucosal thickening within the paranasal sinuses. Procedure Note Earnest Stearns MD - 01/21/2025 MRI BRAIN WITHOUT CONTRAST Clinical Statement: dizziness, patient with history of alocoholwithdrawl Comparison: None Technique: Multiplanar, multisequence MR images of the brain wereobtained without contrast. Findings: There is no evidence of diffusion restriction. Brain parenchymais within normal limits. Intracranial flow voids are within normallimits. The ventricular system is normal in size and morphology. Thebasilar cisterns are within normal limits. The craniocervical junction isgrossly within normal limits. The orbits and globes are within normallimits. Trace mucosal thickening within the paranasal sinuses. IMPRESSION: Impression: 1. No acute intracranial process -------- FINAL REPORT -------- Dictated By: Earnest Stearns Dictated Date: 01/21/2025 20:44 ET Assigned Physician: Earnest Stearns Reviewed and Electronically Signed By: Earnest Stearns Signed Date: 01/21/2025 21:00 ET Workstation ID: [id number] Transcribed By: Self Edit Transcribed Date: 01/21/2025 20:44 ET Jose Briones MD IMG MRI PROCEDURES Fin al Result * HIV 1,2 antibody, p24 antigen with reflex to differentiation (12/17/2024 10:35 AM EDT) HIV Combo AB/AG Negative Negative LAB CHEMISTRY METHOD 12/17/2024 3:48 PM EDT [facility] Blood Venous blood specimen / Unknown Venipuncture / Unknown 12/17/2024 10:35 AM EDT 12/17/2024 10:35 AM EDT Narrative [facility] - 12/17/2024 3:48 PM EDT This assay is a 4th generation assay allowing for earlier detection of HIV infection by detecting the presence of the HIV-1 p24 antigen as well as the traditional antibodies to HIV type 1 (including group O) and type 2. Use of a 4th generation assay is the current CDC recommendation for HIV screening. us Jose Briones MD LAB BLOOD ORDERABLES F inal Result Performing Organization Address City/[facility]/ZIP Co de Phone Number [facility] [address] [place] [address], [place] [phone] * Hepatitis panel, acute with reflex to confirmation (12/17/2024 10:35 AM EDT) [facility] Hepatitis B Surface Ag Negative Negative LAB CHEMISTRY METHOD 12/17/2024 3:49 PM EDT [facility] Hepatitis A Antibody IgM Negative Negative LAB CHEMISTRY METHOD 12/17/2024 3:49 PM EDT [facility] Hep B Core IgM Negative Negative LAB CHEMISTRY METHOD 12/17/2024 3:49 PM EDT [facility] Hepatitis C Antibody Negative Negative LAB CHEMISTRY METHOD 12/17/2024 3:49 PM EDT [facility] Blood Venous blood specimen / Unknown Venipuncture / Unknown 12/17/2024 10:35 AM EDT 12/17/2024 10:35 AM EDT Jose Briones MD LAB BLOOD ORDERABLES F inal Result Performing Organization Address [facility]/ZIP Co de Phone Number [facility] [address] [place] [address], [place] [phone] * (ABNORMAL) CBC auto differential (12/17/2024 10:35 AM EDT) [facility] WBC 6.9 4.8 - 10.8 K/mcL LAB HEMETOLOGY METHOD 12/17/2024 12:24 PM EDT [facility] RBC 3.50(L) 4.50 - 5.50 M/mcL LAB HEMETOLOGY METHOD 12/17/2024 12:24 PM EDT [facility] Hemoglobin 11.5(L) 13.5 - 17.5 g/dL LAB HEMETOLOGY METHOD 12/17/2024 12:24 PM EDT [facility] Hematocrit 34.0(L) 42.0 - 54.0 % LAB HEMETOLOGY METHOD 12/17/2024 12:24 PM EDT [facility] MCV 98.3(H) 79.0 - 98.0 FL LAB HEMETOLOGY METHOD 12/17/2024 12:24 PM [facility] MCH 33.2(H) 27.0 - 32.0 pcg LAB HEMETOLOGY METHOD 12/17/2024 12:24 PM [facility] MCHC 33.8 32.0 - 37.0 g/dL LAB HEMETOLOGY METHOD 12/17/2024 12:24 PM [facility] RDW 13.1 11.0 - 15.0 % LAB HEMETOLOGY METHOD 12/17/2024 12:24 PM [facility] Platelets 230 130 - 400 K/mcL LAB HEMETOLOGY METHOD 12/17/2024 12:24 PM [facility] MPV 9.1 7.0 - 11.0 FL LAB HEMETOLOGY METHOD 12/17/2024 12:24 PM [facility] NRBC 0.0 <1.0 % LAB HEMETOLOGY METHOD 12/17/2024 12:24 PM [facility] NRBC Absolute 0.00 <0.10 K/mcL LAB HEMETOLOGY METHOD 12/17/2024 12:24 PM [facility] Neutrophils Relative 50.4 % LAB HEMETOLOGY METHOD 12/17/2024 12:24 PM [facility] Lymphocytes Relative 33.6 % LAB HEMETOLOGY METHOD 12/17/2024 12:24 PM [facility] Monocytes Relative 12.8 % LAB HEMETOLOGY METHOD 12/17/2024 12:24 PM [facility] Eosinophils Relative 2.2 % LAB HEMETOLOGY METHOD 12/17/2024 12:24 PM EDT [facility] Basophils Relative 0.6 % LAB HEMETOLOGY METHOD 12/17/2024 12:24 PM EDT [facility] Immature Granulocytes Relative 0.4 % LAB HEMETOLOGY METHOD 12/17/2024 12:24 PM EDT [facility] Neutrophils Absolute 3.48 1.50 - 7.00 K/mcL LAB HEMETOLOGY METHOD 12/17/2024 12:24 PM EDT [facility] Lymphocytes Absolute 2.32 1.00 - 5.00 K/mcL LAB HEMETOLOGY METHOD 12/17/2024 12:24 PM EDT [facility] Monocytes Absolute 0.88 0.20 - 1.00 K/mcL LAB HEMETOLOGY METHOD 12/17/2024 12:24 PM EDT [facility] Eosinophils Absolute 0.15 0.00 - 0.50 K/mcL LAB HEMETOLOGY METHOD 12/17/2024 12:24 PM EDT [facility] Basophils Absolute 0.04 0.00 - 0.20 K/mcL LAB HEMETOLOGY METHOD 12/17/2024 12:24 PM EDT [facility] Immature Granulocytes Absolute 0.03 0.00 - 0.03 K/mcL LAB HEMETOLOGY METHOD 12/17/2024 12:24 PM EDT [facility] Blood Venous blood specimen / Unknown Venipuncture / Unknown 12/17/2024 10:35 AM EDT 12/17/2024 10:35 AM EDT us Phyllis Marty RUSH LAB BLOOD ORDERABLES Final Resul t [facility] [address] [place] [address], * Hemoglobin A1c (12/17/2024 10:35 AM EDT) Hemoglobin A1C 5.0 <6.5 % LAB CHEMISTRY METHOD 12/17/2024 6:05 PM EDT [facility] Mean Bld Glu Estim. 97 mg/dL LAB CHEMISTRY METHOD 12/17/2024 6:05 PM EDT [facility] Blood Venous blood specimen / Unknown Venipuncture / Unknown 12/17/2024 10:35 AM EDT 12/17/2024 10:35 AM EDT Phyllis RUSH LAB BLOOD ORDERABLES Final Resul t [facility] [address] [place] [address], [place] [phone] * Ethanol (12/17/2024 10:35 AM EDT) Ethanol Level 4 0 - 10 mg/dL LAB CHEMISTRY METHOD 12/17/2024 7:50 PM EDT [facility] Blood Venous blood specimen / Unknown Venipuncture / Unknown 12/17/2024 10:35 AM EDT 12/17/2024 10:35 AM EDT Jose Briones MD LAB BLOOD ORDERABLES F inal Result Performing Organization Address City/[facility]/ZIP Co de Phone Number [facility] [address] [place] [address], [place] [phone] * (ABNORMAL) Comprehensive metabolic panel (12/17/2024 10:35 AM EDT) Sodium 137 133 - 145 mmol/L LAB CHEMISTRY METHOD 12/17/2024 2:40 PM EDT [facility] Potassium 3.1(L) 3.5 - 5.5 mmol/L LAB CHEMISTRY METHOD 12/17/2024 2:40 PM EDT [facility] Chloride 101 96 - 110 mmol/L LAB CHEMISTRY METHOD 12/17/2024 2:40 PM [facility] CO2 28 21 - 32 mmol/L LAB CHEMISTRY METHOD 12/17/2024 2:40 PM [facility] Anion Gap 8 3 - 11 LAB CHEMISTRY METHOD 12/17/2024 2:40 PM [facility] Glucose 91 70 - 100 mg/dL LAB CHEMISTRY METHOD 12/17/2024 2:40 PM [facility] BUN 8 5 - 25 mg/dL LAB CHEMISTRY METHOD 12/17/2024 2:40 PM [facility] Creatinine 0.82 0.70 - 1.30 mg/dL LAB CHEMISTRY METHOD 12/17/2024 2:40 PM [facility] eGFR 107 >=60 mL/min/1. 73m2 LAB CHEMISTRY METHOD 12/17/2024 2:40 PM [facility] Comment:Calculation based on the Chronic Kidney Disease Epidemiology Collaboration (CKD-EPI) equation refit without adjustment for race. BUN/Creatinine Ratio 9.8 LAB CHEMISTRY METHOD 12/17/2024 2:40 PM [facility] Calcium 8.8 8.5 - 10.5 mg/dL LAB CHEMISTRY METHOD 12/17/2024 2:40 PM [facility] AST (SGOT) 24 10 - 42 unit/L LAB CHEMISTRY METHOD 12/17/2024 2:40 PM [facility] ALT (SGPT) 32 10 - 60 unit/L LAB CHEMISTRY METHOD 12/17/2024 2:40 PM [facility] Alkaline Phosphatase 58 42 - 121 unit/L LAB CHEMISTRY METHOD 12/17/2024 2:40 PM [facility] Total Protein 7.1 6.0 - 8.0 g/dL LAB CHEMISTRY METHOD 12/17/2024 2:40 PM [facility] Albumin 4.0 3.2 - 5.0 g/dL LAB CHEMISTRY METHOD 12/17/2024 2:40 PM EDT [facility] Total Bilirubin 0.4 0.0 - 1.4 mg/dL LAB CHEMISTRY METHOD 12/17/2024 2:40 PM EDT [facility] Blood Venous blood specimen / Unknown Venipuncture / Unknown 12/17/2024 10:35 AM EDT 12/17/2024 10:35 AM EDT us Phyllis Marty PA LAB BLOOD ORDERABLES Final Resul t [facility] [address] [place] [address], [place] [phone] * (ABNORMAL) Lipid panel (09/11/2023) LDL/HDL Ratio 3 <=5 Triglycerides 390(A) 0 - 150 mg/dL Cholesterol 209(A) 0 - 200 mg/dL HDL 69 >=40 mg/dL LDL Cholesterol 62 0 - 100 mg/dL Blood Venous blood specimen / Unknown Historical Provider LAB BLOOD ORDERABLES Aide l Result from Last 3 Months or Most Recently Relevant to Health Maintenance Insurance [facility] [address] [place] [address] WC GENERIC Care Teams Outpatient Coder Relationship Specialty Start Date End Date Jose Briones MD [address] [place] [address] PCP - General 01/25/22
--- OUTSIDE RECORDS SUMMARY | 2025-02-21 15:52 | XMS_ITS | Encounter Summary ---
Author Organization [facility] Address [address] [place] [address] Care Team Providers Care Marble And Granite Polisher Name Role Phone Jose Briones MD Primary Care Provider Encounter Details Date Type Department Care Team (Late st Contact Info) Description 12/17/2024 Results Follow-Up Adult Medicine [facility] [address] [place], [place] [phone] Phyllis Ferguson PA [address] [place], [place] Social History Tobacco Use Types Packs/Day Years Used Date Smoking Tobacco: Former Smokeless Tobacco: Never Alcohol Use Standard Drinks/Week Comments Yes 20 [...] for your loved ones. For example, child abuse worker or elderly care for an older adult? [...] on file Sexual Orientation Not on file documented as of this encounter Ordered Prescriptions Prescription Sig Dispense Quantity Refills Last Filled Start Date End Date potassium chloride (Klor-Con) 20 mEq packet Take 20 mEq by mouth 2 (two) times a day for 14 days. 28 packet 12/17/2024 12/31/2024 documented in this encounter Plan of Treatment Upcoming Encounters Date Type Department Care Team (Late st Contact Info) Description 04/01/2025 3:30 PM EST Office Visit Adult Medicine [facility] [address], [place] [phone] Jose Briones MD [address] [place], [place] Scheduled Orders Name Type Priority Associated Diagnoses Orde r Schedule Potassium Lab Routine Hypokalemia Expected: 12/24/2024, Expires: 12/17/2025 documented as of this encounter Visit Diagnoses Diagnosis Hypokalemia- Primary Hypopotassemia documented in this encounter Additional Health Concerns Assessment Noted Time PHQ-9 Depression Total Score: 0 11/27/19 25 12:52 PM EDT documented as of this encounter Care Teams Marble And Granite Polisher Relationship Specialty Start Date End Date Jose Briones MD [address] [place] [phone] PCP - General 01/25/22 documented as of this encounter
--- OUTSIDE RECORDS SUMMARY | 2025-02-21 15:53 | XMS_ITS | Encounter Summary ---
Author Organization [facility] Address [address] [place] [address] Care Team Providers Care Pest Controller Assistant Name Role Phone Jose Briones MD Primary Care Provider Encounter Details Date Type Department Care Team (Late st Contact Info) Description 01/22/2025 Results Follow-Up Adult Medicine [facility] [address] [place], [place] [phone] Jose Briones MD [address] [place], [place] Social History Tobacco Use Types Packs/Day [...] for your loved ones. For example, child welfare director or elderly care for an older adult? [...] on file documented as of this encounter Plan of Treatment Upcoming Encounters Date Type Department Care Team (Late st Contact Info) Description 04/01/2025 3:30 PM EST Office Visit Adult Medicine [facility] [address], [place] [phone] Jose Briones MD [address] [place], [place] documented as of this encounter Visit Diagnoses Not on filedocumented in this encounter Additional Health Concerns Assessment Noted Time PHQ-9 Depression Total Score: 0 11/27/19 25 12:52 PM EDT documented as of this encounter Care Teams Pest Controller Assistant Relationship Specialty Start Date End Date Jose Briones MD [address] [place] [phone] PCP - General 01/25/22 documented as of this encounter
== END 2025-02-21 15:51 | disposition home or self-care (01) ==
LOC: HO.CT 15:50
PROVIDERS: PCP Internal Medicine; Visit Provider Physician Assistant
DX: M43.16 Spondylolisthesis, lumbar region (principal)
CPT/HCPCS: 72131

== ENCOUNTER → 2025-02-21 15:52 | Outpatient (BNV) | payer OTHER, SELFPAY | PROVIDERS: PCP Internal Medicine; Visit Provider Radiology Diagnostic Radiology | DX: M43.16 Spondylolisthesis, lumbar region (principal); M47.816 Spondylosis without myelopathy or radiculopathy, lumbar region; Z98.1 Arthrodesis status | CPT/HCPCS: 72131 ==